=== PATIENT | male | born 1940 | race Caucasian/White ===

== ENCOUNTER 2018-04-08 12:45 | Outpatient (RCR) | payer MEDICARE, OTHER, SELFPAY ==
[2018-04-08] MEDS: Normal Saline Flush 10 ML SYR IVP (10:25)
[2018-04-08 10:51] LABS: Abs Immature Grans 0.01 k/cumm (0.0-0.09); Absolute Basophil Count 0.01 k/cumm (0.0-0.2); Absolute Eosinophil Count 0.15 k/cumm (0.0-0.7); Absolute Lymphocyte Count 1.18 k/cumm (1.2-3.4); Absolute Monocyte Count 0.57 k/cumm (0.11-0.7); Basophils % 0.2; Eosinophils % 2.6; HCT 41.6 % (40.0-50.0); HGB 13.7 g/dL (13.5-17.5); Immature Grans % 0.2; Lymphocytes % 20.6; Mean Corp. HGB Concentration 32.9 g/dL (32.0-36.0); Mean Corpuscular Hemoglobin 31.2 pg (27.0-33.0); Mean Corpuscular Volume 94.8 fL (80-95); Mean Platelet Volume 12.2 fL (8.0-11.0); Neutrophils % 66.4; Platelet Count 132 x1000/uL (130-400); RBC 4.39 m/cumm (4.50-6.00); White Blood Cell Count 5.72 k/cumm (4.4-10.8)
[2018-04-08 11:11] LABS: ALT 22 U/L (12-78); AST 18 U/L (15-37); Albumin 3.6 g/dL (3.4-5.0); Alkaline Phosphatase 86 U/L (46-116); Anion Gap 5.7 mmol/L (3-11); BUN 15 mg/dL (7-18); Bilirubin, Total 0.5 mg/dL (0.2-1.0); CO2 29.3 mmol/L (21.0-32.0); CREATININE 1.04 mg/dL (0.70-1.30); Calcium 8.4 mg/dL (8.5-10.1); Chloride 105 mmol/L (98-107); Glucose 93 mg/dL (70-100); Potassium 4.1 mmol/L (3.5-5.1); Sodium 140 mmol/L (136-145); TSH 2.24 uIU/mL (0.358-3.74); Total Protein 6.7 g/dL (6.4-8.2)
[2018-04-29] MEDS: Normal Saline Flush 10 ML SYR IVP (12:45)
[2018-04-29 13:25] LABS: ALT 23 U/L (12-78); AST 21 U/L (15-37); Albumin 3.7 g/dL (3.4-5.0); Alkaline Phosphatase 90 U/L (46-116); Anion Gap 5.5 mmol/L (3-11); BUN 21 mg/dL (7-18); Bilirubin, Total 0.7 mg/dL (0.2-1.0); CO2 29.5 mmol/L (21.0-32.0); CREATININE 1.26 mg/dL (0.70-1.30); Calcium 8.8 mg/dL (8.5-10.1); Chloride 105 mmol/L (98-107); Estimated GFR 55.35 (mL/min/1.73m2); Glucose 106 mg/dL (70-100); Sodium 140 mmol/L (136-145); T4 8.2 ug/dL (4.5-12.5); TSH 2.23 uIU/mL (0.358-3.74); Total Protein 6.9 g/dL (6.4-8.2)
[2018-04-29 13:26] LABS: Abs Immature Grans 0.01 k/cumm (0.0-0.09); Absolute Basophil Count 0.02 k/cumm (0.0-0.2); Absolute Eosinophil Count 0.09 k/cumm (0.0-0.7); Absolute Lymphocyte Count 1.19 k/cumm (1.2-3.4); Absolute Monocyte Count 0.48 k/cumm (0.11-0.7); Basophils % 0.3; Eosinophils % 1.4; HCT 42.9 % (40.0-50.0); Immature Grans % 0.2; Lymphocytes % 18.6; Mean Corp. HGB Concentration 32.6 g/dL (32.0-36.0); Mean Corpuscular Hemoglobin 30.8 pg (27.0-33.0); Mean Corpuscular Volume 94.3 fL (80-95); Mean Platelet Volume 12.4 fL (8.0-11.0); Monocytes % 7.5; Platelet Count 133 x1000/uL (130-400); RBC 4.55 m/cumm (4.50-6.00); RBC Distribution Width 13.8 % (11.8-14.1); White Blood Cell Count 6.39 k/cumm (4.4-10.8)
== END 2018-05-07 ==
LOC: INF 04-29 12:45
PROVIDERS: Visit Provider Internal Medicine Medical Oncology
DX: C34.11 Malignant neoplasm of upper lobe, right bronchus or lung (principal); E03.2 Hypothyroidism due to medicaments and other exogenous substances; Z45.2 Encounter for adjustment and management of vascular access device
CPT/HCPCS: 36591 ×2; 80053; 84436; 84443; 85025

== ENCOUNTER 2018-05-18 01:15 | Outpatient (RCR) | payer MEDICARE, BC, OTHER, SELFPAY ==
[2018-05-18] MEDS: Normal Saline Flush 10 ML SYR IVP (12:10)
[2018-05-18 12:31] LABS: Abs Immature Grans 0.01 k/cumm (0.0-0.09); Absolute Basophil Count 0.02 k/cumm (0.0-0.2); Absolute Eosinophil Count 0.08 k/cumm (0.0-0.7); Absolute Lymphocyte Count 1.14 k/cumm (1.2-3.4); Absolute Monocyte Count 0.52 k/cumm (0.11-0.7); Absolute Neutrophil Count 5.45 k/cumm (1.2-6.7); Basophils % 0.3; Eosinophils % 1.1; HCT 41.4 % (40.0-50.0); HGB 13.8 g/dL (13.5-17.5); Immature Grans % 0.1; Lymphocytes % 15.8; Mean Corp. HGB Concentration 33.3 g/dL (32.0-36.0); Mean Corpuscular Hemoglobin 31.6 pg (27.0-33.0); Mean Corpuscular Volume 94.7 fL (80-95); Mean Platelet Volume 12.4 fL (8.0-11.0); Monocytes % 7.2; Neutrophils % 75.5; Platelet Count 146 x1000/uL (130-400); RBC 4.37 m/cumm (4.50-6.00); RBC Distribution Width 13.8 % (11.8-14.1); White Blood Cell Count 7.22 k/cumm (4.4-10.8)
[2018-05-18 12:59] LABS: ALT 23 U/L (12-78); AST 20 U/L (15-37); Albumin 3.6 g/dL (3.4-5.0); Alkaline Phosphatase 88 U/L (46-116); Anion Gap 6.3 mmol/L (3-11); BUN 23 mg/dL (7-18); Bilirubin, Total 0.5 mg/dL (0.2-1.0); CO2 27.7 mmol/L (21.0-32.0); Calcium 8.9 mg/dL (8.5-10.1); Chloride 106 mmol/L (98-107); Glucose 120 mg/dL (70-100); Potassium 4.2 mmol/L (3.5-5.1); Sodium 140 mmol/L (136-145); TSH 1.62 uIU/mL (0.358-3.74); Total Protein 6.9 g/dL (6.4-8.2)
[2018-05-18 13:36] LABS: T4 8.3 ug/dL (4.5-12.5)
== END 2018-06-06 23:59 | disposition home or self-care (01) ==
LOC: INF 01:15
PROVIDERS: Visit Provider Internal Medicine Medical Oncology
DX: C34.11 Malignant neoplasm of upper lobe, right bronchus or lung (principal); E03.2 Hypothyroidism due to medicaments and other exogenous substances; Z45.2 Encounter for adjustment and management of vascular access device
CPT/HCPCS: 36591; 80053; 84436; 84443; 85025

== ENCOUNTER 2019-03-03 01:29 | Outpatient (RCR) | payer MEDICARE, OTHER, SELFPAY ==
[2019-03-03] MEDS: Heparin 500 UNITS/5 ML SYRINGE IV (14:25)
[2019-03-03] MEDS: Normal Saline Flush 10 ML SYR IVP (14:25)
[2019-03-03 14:42] LABS: Abs Immature Grans 0.01 k/cumm (0.0-0.09); Absolute Basophil Count 0.02 k/cumm (0.0-0.2); Absolute Eosinophil Count 0.07 k/cumm (0.0-0.7); Absolute Lymphocyte Count 1.08 k/cumm (1.2-3.4); Absolute Monocyte Count 0.45 k/cumm (0.11-0.7); Absolute Neutrophil Count 4.76 k/cumm (1.2-6.7); Basophils % 0.3; Eosinophils % 1.1; HCT 40.6 % (40.0-50.0); HGB 13.5 g/dL (13.5-17.5); Immature Grans % 0.2; Lymphocytes % 16.9; Mean Corp. HGB Concentration 33.3 g/dL (32.0-36.0); Mean Corpuscular Hemoglobin 31.2 pg (27.0-33.0); Mean Corpuscular Volume 93.8 fL (80-95); Mean Platelet Volume 12.4 fL (8.0-11.0); Neutrophils % 74.5; Platelet Count 137 x1000/uL (130-400); RBC 4.33 m/cumm (4.50-6.00); RBC Distribution Width 13.6 % (11.8-14.1); White Blood Cell Count 6.39 k/cumm (4.4-10.8)
[2019-03-03 15:06] LABS: ALT 21 U/L (12-78); AST 18 U/L (15-37); Albumin 3.7 g/dL (3.4-5.0); Alkaline Phosphatase 93 U/L (46-116); Anion Gap 9.1 mmol/L (3-11); BUN 18 mg/dL (7-18); Bilirubin, Total 0.6 mg/dL (0.2-1.0); CO2 26.9 mmol/L (21.0-32.0); CREATININE 1.01 mg/dL (0.70-1.30); Calcium 8.8 mg/dL (8.5-10.1); Chloride 106 mmol/L (98-107); Glucose 114 mg/dL (70-100); Potassium 3.9 mmol/L (3.5-5.1); Sodium 142 mmol/L (136-145); TSH 2.27 uIU/mL (0.358-3.74); Total Protein 6.9 g/dL (6.4-8.2)
[2019-03-03 16:54] LABS: T4 6.8 ug/dL (4.5-12.5)
== END 2019-03-06 23:59 | disposition home or self-care (01) ==
LOC: INF 01:29
PROVIDERS: Visit Provider Internal Medicine Hematology & Oncology
DX: C34.91 Malignant neoplasm of unspecified part of right bronchus or lung (principal); E03.2 Hypothyroidism due to medicaments and other exogenous substances; Z45.2 Encounter for adjustment and management of vascular access device
CPT/HCPCS: 36591; 80053; 96523; 84436; 84443; 85025

== ENCOUNTER 2019-03-31 01:35 | Outpatient (RCR) | payer MEDICARE, BC, OTHER, SELFPAY ==
[2019-03-31 13:06] LABS: Abs Immature Grans 0.02 k/cumm (0.0-0.09); Absolute Basophil Count 0.02 k/cumm (0.0-0.2); Absolute Eosinophil Count 0.13 k/cumm (0.0-0.7); Absolute Lymphocyte Count 1.21 k/cumm (1.2-3.4); Absolute Monocyte Count 0.48 k/cumm (0.11-0.7); Absolute Neutrophil Count 4.32 k/cumm (1.2-6.7); Basophils % 0.3; Eosinophils % 2.1; HCT 42.2 % (40.0-50.0); HGB 13.8 g/dL (13.5-17.5); Immature Grans % 0.3; Lymphocytes % 19.6; Mean Corp. HGB Concentration 32.7 g/dL (32.0-36.0); Mean Corpuscular Volume 94.8 fL (80-95); Mean Platelet Volume 12.3 fL (8.0-11.0); Monocytes % 7.8; Neutrophils % 69.9; Platelet Count 130 x1000/uL (130-400); RBC 4.45 m/cumm (4.50-6.00); RBC Distribution Width 13.9 % (11.8-14.1); White Blood Cell Count 6.18 k/cumm (4.4-10.8)
[2019-03-31] MEDS: Normal Saline Flush 10 ML SYR IVP (13:24)
[2019-03-31 13:35] LABS: ALT 26 U/L (12-78); AST 22 U/L (15-37); Albumin 3.5 g/dL (3.4-5.0); Alkaline Phosphatase 96 U/L (46-116); Anion Gap 10.2 mmol/L (3-11); BUN 19 mg/dL (7-18); Bilirubin, Total 0.6 mg/dL (0.2-1.0); CO2 25.8 mmol/L (21.0-32.0); CREATININE 1.14 mg/dL (0.70-1.30); Calcium 8.5 mg/dL (8.5-10.1); Chloride 107 mmol/L (98-107); Glucose 107 mg/dL (70-100); Potassium 4.2 mmol/L (3.5-5.1); Sodium 143 mmol/L (136-145); T4 6.2 ug/dL (4.5-12.5); TSH 2.64 uIU/mL (0.36-3.74); Total Protein 6.6 g/dL (6.4-8.2)
== END 2019-04-06 23:59 | disposition home or self-care (01) ==
LOC: INF 01:35
PROVIDERS: PCP Internal Medicine Hematology & Oncology; Visit Provider Internal Medicine Hematology & Oncology
DX: C34.11 Malignant neoplasm of upper lobe, right bronchus or lung (principal); E03.2 Hypothyroidism due to medicaments and other exogenous substances; Z45.2 Encounter for adjustment and management of vascular access device
CPT/HCPCS: 36591; 80053; 84436; 84443; 85025

== ENCOUNTER 2019-04-21 00:26 | Outpatient (RCR) | payer MEDICARE, BC, OTHER, SELFPAY ==
[2019-04-21] MEDS: Normal Saline Flush 10 ML SYR IVP (12:24)
[2019-04-21 12:41] LABS: HCT 40.8 % (40.0-50.0); HGB 13.5 g/dL (13.5-17.5); Mean Corp. HGB Concentration 33.1 g/dL (32.0-36.0); Mean Corpuscular Hemoglobin 31.2 pg (27.0-33.0); Mean Corpuscular Volume 94.2 fL (80-95); Mean Platelet Volume 14.1 fL (8.0-11.0); Platelet Count 118 x1000/uL (130-400); RBC 4.33 m/cumm (4.50-6.00); RBC Distribution Width 14.1 % (11.8-14.1)
[2019-04-21 12:52] LABS: Absolute Eosinophil Count 0.12 k/cumm (0.0-0.7); Absolute Lymphocyte Count 0.89 k/cumm (1.2-3.4); Absolute Monocyte Count 0.47 k/cumm (0.11-0.7); Absolute Neutrophil Count 4.43 k/cumm (1.2-6.7); Atypical Lymphocytes % 6; Diff Comment Manual Differential; RBC Morphology Normal
[2019-04-21 12:57] LABS: ALT 24 U/L (12-78); AST 17 U/L (15-37); Albumin 3.6 g/dL (3.4-5.0); Alkaline Phosphatase 84 U/L (46-116); Anion Gap 6.7 mmol/L (3-11); BUN 20 mg/dL (7-18); Bilirubin, Total 0.7 mg/dL (0.2-1.0); CO2 28.3 mmol/L (21.0-32.0); CREATININE 1.01 mg/dL (0.70-1.30); Calcium 8.7 mg/dL (8.5-10.1); Chloride 107 mmol/L (98-107); Glucose 99 mg/dL (70-100); NT-proBNP 391 pg/mL; Potassium 4.1 mmol/L (3.5-5.1); Sodium 142 mmol/L (136-145); TSH 2.01 uIU/mL (0.36-3.74); Total Protein 6.8 g/dL (6.4-8.2)
[2019-04-21 13:08] LABS: T4 7.9 ug/dL (4.5-12.5)
== END 2019-05-07 23:59 | disposition home or self-care (01) ==
LOC: INF 00:26
PROVIDERS: PCP Internal Medicine Hematology & Oncology; Visit Provider Internal Medicine Hematology & Oncology
DX: C34.11 Malignant neoplasm of upper lobe, right bronchus or lung (principal); E03.2 Hypothyroidism due to medicaments and other exogenous substances; R06.09 Other forms of dyspnea; Z45.2 Encounter for adjustment and management of vascular access device
CPT/HCPCS: 36591; 80053; 83880; 84436; 84443; 85025

== ENCOUNTER 2019-05-26 01:23 | Outpatient (RCR) | payer MEDICARE, OTHER, BC, SELFPAY ==
[2019-05-26] MEDS: Normal Saline Flush 10 ML SYR IVP (10:05)
[2019-05-26 10:09] LABS: Abs Immature Grans 0.01 k/cumm (0.0-0.09); Absolute Basophil Count 0.01 k/cumm (0.0-0.2); Absolute Eosinophil Count 0.18 k/cumm (0.0-0.7); Absolute Lymphocyte Count 1.13 k/cumm (1.2-3.4); Absolute Monocyte Count 0.67 k/cumm (0.11-0.7); Absolute Neutrophil Count 4.36 k/cumm (1.2-6.7); Basophils % 0.2; Eosinophils % 2.8; HCT 42.4 % (40.0-50.0); HGB 13.7 g/dL (13.5-17.5); Immature Grans % 0.2; Lymphocytes % 17.8; Mean Corp. HGB Concentration 32.3 g/dL (32.0-36.0); Mean Corpuscular Hemoglobin 30.6 pg (27.0-33.0); Mean Corpuscular Volume 94.9 fL (80-95); Mean Platelet Volume 12.5 fL (8.0-11.0); Monocytes % 10.5; Neutrophils % 68.5; Platelet Count 139 x1000/uL (130-400); RBC 4.47 m/cumm (4.50-6.00); RBC Distribution Width 13.8 % (11.8-14.1); White Blood Cell Count 6.36 k/cumm (4.4-10.8)
[2019-05-26 10:30] LABS: ALT 25 U/L (16-63); AST 18 U/L (15-37); Albumin 3.5 g/dL (3.4-5.0); Alkaline Phosphatase 86 U/L (46-116); Anion Gap 11.6 mmol/L (3-11); BUN 18 mg/dL (7-18); Bilirubin, Total 0.7 mg/dL (0.2-1.0); CO2 27.4 mmol/L (21.0-32.0); CREATININE 1.11 mg/dL (0.70-1.30); Calcium 8.6 mg/dL (8.5-10.1); Chloride 104 mmol/L (98-107); Glucose 92 mg/dL (70-100); Sodium 143 mmol/L (136-145); T4 7.5 ug/dL (4.5-12.5); TSH 2.27 uIU/mL (0.36-3.74); Total Protein 6.8 g/dL (6.4-8.2)
== END 2019-06-06 23:59 | disposition home or self-care (01) ==
LOC: INF 01:23
PROVIDERS: PCP Internal Medicine Hematology & Oncology; Visit Provider Internal Medicine Hematology & Oncology
DX: C34.11 Malignant neoplasm of upper lobe, right bronchus or lung (principal); Z45.2 Encounter for adjustment and management of vascular access device
CPT/HCPCS: 36591; 80053; 84436; 84443; 85025

== ENCOUNTER 2021-04-11 14:54 | Outpatient (REF) | payer MEDICARE, SELFPAY ==
[2021-04-11 14:51] LABS: Abs Immature Grans 0.03 10^3/uL (0.0-0.06); Absolute Basophil Count 0.03 10^3/uL (0.0-0.2); Absolute Eosinophil Count 0.13 10^3/uL (0.0-0.7); Absolute Lymphocyte Count 1.22 10^3/uL (1.2-3.4); Absolute Monocyte Count 0.59 10^3/uL (0.1-0.8); Absolute Neutrophil Count 4.68 10^3/uL (1.2-6.7); Basophils % 0.4; Eosinophils % 1.9; HCT 40.5 % (40.0-50.0); HGB 13.1 g/dL (13.5-17.5); Immature Grans % 0.4; Lymphocytes % 18.3; MCHC 32.3 % (32.0-36.0); MCV 95.7 fL (80-95); Monocytes % 8.8; Neutrophils % 70.2; Nucleated RBC 0 %; RBC 4.23 10^6/uL (4.36-5.78); RDW 13.6 % (11.8-14.1); RDW-SD 47.9 fL; WBC 6.68 10^3/uL (4.4-10.8)
[2021-04-11 15:14] LABS: Diff Comment Diff Reviewed; Poikilocytes 1+
== END 2021-04-11 14:55 | disposition home or self-care (01) ==
LOC: LBN 14:54
PROVIDERS: PCP Internal Medicine Hematology & Oncology; Visit Provider Internal Medicine Hematology & Oncology
DX: C34.11 Malignant neoplasm of upper lobe, right bronchus or lung (principal)
CPT/HCPCS: 85025

== ENCOUNTER → 2024-04-07 03:01 | Outpatient (CLI) | payer MEDICARE, BC, OTHER, SELFPAY ==
--- NOTE | 2024-04-07 | DI.CT_ITS ---
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 COMPARISON: CT,[facility] CT CHEST WITH IV CONTRAST from 12/24/2023 FINDINGS: Pulmonary parenchyma: No consolidation. Arm scarring noted above the RT hilum in the medial right upp er lobe with some increased densities but no measurable discrete mass. Stable nodule along the pleura of the right lower lobe laterally. Stable area of pleural nodularity posteriorly in the left upper l obe. No new nodules. Tracheobronchial tree: No bronchiectasis or mucous plugging. Mediastinum and Ligia: No dominant adenopathy or fluid collection. Pleura: No effusion. No pneumothorax. Heart: The heart is mildly dilated, mild biatrial enlargement. Moderate coronary artery calcification s are seen. Stable size of the pericardial effusion. Aorta: Thoracic aorta non-dilated. Mild atherosclerotic changes. Pulmonary arteries: No gross evidence of emboli. Upper abdomen: Cholelithiasis. Bones: Stable appearance ofdegenerative changes in the spine. Stable appearance of central compress ion mid of mid to lower thoracic vertebral bodies. No suspicious lesions. Soft tissues: Unremarkable. IMPRESSION: decreased size of previously noted medial right upper lobe mass, now no longer discretely visible. No new findings. RADIATION DOSE DELIVERED: Total DLP DATA REPOSITORY: All CT scans at this facility are submitted to the National Radiology Data Registry (NRDR) Dose Index Registry (DIR) with the [employer] ([employer]). RADIATION OPTIMIZATION: All CT scans at this facility use at least one of these dose optimization te chniques: automated exposure control; mA and/or kV adjustment per patient size (includes targeted exa ms where dose is matched to clinical indication); or iterative reconstruction.
[2024-04-07 13:09] LABS: Anion Gap 8.6 mmol/L (3-11); BUN 14 mg/dL (7-18); CO2 29.4 mmol/L (21.0-32.0); CREATININE 1.1 mg/dL (0.70-1.30); Calcium 9.2 mg/dL (8.5-10.1); Chloride 105 mmol/L (98-107); Estimated GFR 66.19 (mL/min/1.73m2); Glucose 100 mg/dL (74-106); Potassium 4.5 mmol/L (3.5-5.1); Sodium 143 mmol/L (136-145)
[2024-04-07] MEDS: Normal Saline - Diluent 50 ML VIAL IJ (13:27)
[2024-04-07] MEDS: Omnipaque 350 MG/ML 100 ML BTL 70 ML IJ (13:28)
== END ==
PROVIDERS: PCP Internal Medicine Hematology & Oncology; Visit Provider Nurse Practitioner Adult Health
DX: C34.90 Malignant neoplasm of unspecified part of unspecified bronchus or lung (principal)
CPT/HCPCS: 80048; 71260; J3490

== ENCOUNTER 2025-04-12 02:21 | Outpatient (CLI) | payer MEDICARE, SELFPAY ==
[2025-04-12 13:52] LABS: Abs Immature Grans 0.02 10^3/uL (0.0-0.06); HCT 39.4 % (40.0-50.0); HGB 13.1 g/dL (13.5-17.5); MCH 32.0 pg (27.0-33.0); MCHC 33.2 % (32.0-36.0); MCV 96 fL (80-95); MPV 12.4 fL (8.0-11.0); Platelet Count 106 10^3/uL (130-400); RBC 4.09 10^6/uL (4.36-5.78); RDW 14.2 % (11.8-14.1); RDW-SD 49.9 fL; WBC 6.84 10^3/uL (4.4-10.8)
[2025-04-12 14:12] LABS: Immature Grans % 0.0 %; RBC Morphology Normal
[2025-04-12 14:16] LABS: ALT 36 U/L (16-63); AST 30 U/L (15-37); Albumin 3.3 g/dL (3.4-5.0); Alkaline Phosphatase 135 U/L (46-116); Anion Gap 5.2 mmol/L (3-11); BUN 18 mg/dL (7-18); Bilirubin, Total 0.8 mg/dL (0.2-1.0); CO2 27.8 mmol/L (21.0-32.0); Calcium 9.0 mg/dL (8.5-10.1); Chloride 105 mmol/L (98-107); Estimated GFR 59.26 (mL/min/1.73m2); Glucose 117 mg/dL (74-106); Potassium 3.9 mmol/L (3.5-5.1); Sodium 138 mmol/L (136-145); Total Protein 6.7 g/dL (6.4-8.2)
== END 2025-04-12 02:22 | disposition home or self-care (01) ==
LOC: LBO 02:22
PROVIDERS: PCP Internal Medicine Hematology & Oncology; Visit Provider Internal Medicine Hematology & Oncology
DX: C34.11 Malignant neoplasm of upper lobe, right bronchus or lung (principal)
CPT/HCPCS: 36415; 80053; 85025

== ENCOUNTER 2025-05-04 03:14 | Outpatient (CLI) | payer MEDICARE, OTHER, BC, SELFPAY ==
--- NOTE | 2025-05-04 | DI.CT_ITS ---
Exam(s) CT CHEST WO EXAM: CT CHEST WO CLINICAL HISTORY: ADENOCA OF UPPER LOBE RT LUNG,C34.11,NSCLC MONITORING. TECHNIQUE: Imaging protocol: Axial computed tomography images were obtained and coronal and sagittal reformatted images were created and reviewed. Lung Computer Aided Detection (CAD) was utilized. COMPARISON: CT,DOC CT CHEST WITH IV CONTRAST from 12/24/[address] CHEST W from 04/07/2024 FINDINGS: Tracheobronchial tree: Patent where visualized. No bronchiectasis is present. Pulmonary parenchyma: Linear infiltrate and volume loss is again seen in the medial aspect of the right upper lobe. This appears stable. The lungs are otherwise clear. No new pulmonary nodules are present. Mediastinum and Ligia: No dominant adenopathy or fluid collection. The esophagus is unremarkable.There is a small hiatal hernia. Thyroid gland: Unremarkable. Pleura: No effusion or pneumothorax. Heart: Cardiomegaly. Marked three-vessel coronary artery calcification is present. There is a persistent small pericardial effusion. Aorta: The ascending thoracic aorta measures 5.0 x 4.6 cm. Atherosclerotic calcification is present. Upper abdomen: Cholelithiasis. Lymph nodes: Within normal limits. Soft tissues: Unremarkable. Bones:Within normal limits for the patient's age. There are marked degenerative changes seen at the glenohumeral joints bilaterally. There is a stable appearance of the thoracic spine no acute abnormality is identified. IMPRESSION: There is a stable appearance of the chest. RADIATION DOSE DELIVERED: 382.53mGy.cm Total DLP 382.53mGy.cm Total DLP DATA REPOSITORY: All CT scans at this facility are submitted to the National Radiology Data Registry (NRDR) Dose Index Registry (DIR) with the [employer] ([employer]). RADIATION OPTIMIZATION: All CT scans at this facility use at least one of these dose optimization techniques: automated exposure control; mA and/or kV adjustment per patient size (includes targeted exams where dose is matched to clinical indication); or iterative reconstruction.
== END 2025-05-04 03:34 ==
PROVIDERS: PCP Internal Medicine Hematology & Oncology; Visit Provider Nurse Practitioner Family
DX: C34.11 Malignant neoplasm of upper lobe, right bronchus or lung (principal)
CPT/HCPCS: 71250